=== PATIENT | female | born 1970 | race Caucasian/White ===

== ENCOUNTER 2017-12-10 06:30 | Day surgery (SDC) | payer OTHER | END 2017-12-10 11:55 | disposition home or self-care (01) | LOC: AMB-ENDOS 06:30 | DX: K64.8 Other hemorrhoids (principal); K57.30 Diverticulosis of large intestine without perforation or abscess without bleeding ==

== ENCOUNTER 2021-09-10 09:55 | Outpatient (CLI) | payer OTHER | END 2021-09-10 09:58 | disposition home or self-care (01) | LOC: SONOGRAMA 09:55 | PROVIDERS: ATTEND Pathology Anatomic Pathology & Clinical Pathology | DX: E04.2 Nontoxic multinodular goiter (principal) ==